=== PATIENT | male | born 1990 | race American Indian/Alaskan Native ===

== ENCOUNTER 2021-12-09 09:15 | Emergency (ER) | payer OTHER ==
[2021-12-09 09:24] VITALS: BP 117/68; PULSE 72; TEMP 98; BMI 26.2
[2021-12-09 10:16] LABS: HEMATOCRIT 44.9 % (35.4-49); HEMOGLOBIN 15.9 G/dL (11.7-16.9); MCH 31.9 pg (25.7-33.7); MCHC 35.3 g/dl (32.0-35.9); MEAN CELL VOLUME 90.3 fl (80-96); MEAN PLT VOLUME 8.2 fl (7.5-11.1); PLATELET COUNT 229.1 10^3/uL (134-434); RBC 4.97 10^6/uL (4.00-5.60); RDW 13.8 % (11.9-15.9); WHITE BLOOD COUNT 6.9 10^3/uL (4.0-10.8)
[2021-12-09 10:23] LABS: ALBUMIN 4.2 g/dl (3.4-5.0); BILIRUBIN,TOTAL 0.8 mg/dl (0.2-1); CALCIUM 9.6 mg/dl (8.5-10); CREATININE 1.1 mg/dl (0.55-1.3); TOT PROT 6.8 g/dl (6.4-8.2)
[2021-12-09] MEDS ORDERED: VANCOMYCIN 1 GM in D5W (PRE-DOCKED) 1,000 MG/250 ML IVPB ONE (10:34)
[2021-12-09] MEDS ORDERED: VANCOMYCIN 1,000 MG VIAL (RESTRICTED TO ID ONLY) ONE (10:35)
[2021-12-09 11:11] LABS: PLATELET ESTIMATE ADEQUATE
== END 2021-12-09 12:38 | disposition home or self-care (01) ==
LOC: FER 09:15 → SUPCPDRO 09:15 → FER 12:38
DX: L03.011 Cellulitis of right finger (principal)
CPT/HCPCS: 36415; 73130-TC-RT-FY; 80053; 85025; 99284-25